=== PATIENT | male | born 1960 | race Caucasian/White ===

== ENCOUNTER 2016-06-15 14:22 | Emergency (ER) | payer OTHER ==
[2016-06-15 16:27] LABS: BASOPHIL 0.7 % (0-2); EOSINOPHIL 3.5 % (0-5); HCT 47.1 % (42.0-52.0); LYMPHOCYTE 19.5 % (15-48); MCH 30.5 pg (25.0-31.0); MCV 89.9 fL (78.0-100.0); MONOCYTE 12.5 % (0-12); MPV 10.3 fL (6.0-9.5); PLT 233 K/uL (150-400); RBC 5.24 M/uL (4.70-6.00); RDW 14.1 % (11.5-14.0); WBC 9.1 K/uL (4.0-10.5)
[2016-06-15 16:31] LABS: NEUTROPHIL 63.8 % (41-80)
[2016-06-15 16:42] LABS: ALBUMIN 4.3 g/dL (3.5-5.0); BILIRUBIN - TOTAL 0.5 mg/dL (0.1-1.0); CREATININE 2.2 mg/dL (0.7-1.2); GLOBULIN (CALCULATION) 2.3 g/dL (2.2-4.2); MAGNESIUM 2.07 mg/dL (1.40-2.10); POTASSIUM 4.1 mmol/L (3.5-5.1); TOTAL PROTEIN 6.6 g/dL (6.4-8.3)
== END 2016-06-15 18:45 | disposition home or self-care (01) ==
LOC: FER 14:22
PROVIDERS: Internal Medicine
DX: I95.1 Orthostatic hypotension (principal); N17.9 Acute kidney failure, unspecified; E11.40 Type 2 diabetes mellitus with diabetic neuropathy, unspecified; E03.9 Hypothyroidism, unspecified; F32.9 Major depressive disorder, single episode, unspecified; Z88.0 Allergy status to penicillin; Z88.2 Allergy status to sulfonamides; Z88.1 Allergy status to other antibiotic agents
CPT/HCPCS: 36415; 71010; 80053; 83735; 85025; 93005

== ENCOUNTER 2020-07-20 14:59 | Emergency (ER) | payer MEDICARE | END 2020-07-20 18:30 | disposition home or self-care (01) | LOC: FER 14:59 | DX: S81.811A Laceration without foreign body, right lower leg, initial encounter (principal); E11.9 Type 2 diabetes mellitus without complications; Z88.0 Allergy status to penicillin; Z88.1 Allergy status to other antibiotic agents; Z88.6 Allergy status to analgesic agent; Z23 Encounter for immunization; W20.8XXA Other cause of strike by thrown, projected or falling object, initial encounter | CPT/HCPCS: 73590; 90471; 90714 ==